=== PATIENT | male | born 2005 | race American Indian/Alaskan Native ===

== ENCOUNTER 2024-07-13 03:31 | Emergency (ER) | payer SELFPAY ==
[2024-07-13] MEDS: Dexamethasone 6 MG TABLET PO ONE (03:56)
== END 2024-07-13 04:07 | disposition home or self-care (01) ==
LOC: EDBD → DL.ED 03:31
DX: L50.9 Urticaria, unspecified (principal)
CPT/HCPCS: 99283; 99284; J8540